=== PATIENT | female | born 1955 | race Caucasian/White ===

== ENCOUNTER → 2017-11-10 | Outpatient (CLI) | payer BC ==
[~2017-11-10] MED LIST: REGADENOSON 0.4 MG/5 ML SYR IV ONE
--- NOTE | 2017-11-10 15:41 | Consultation ---
DATE OF CONSULTATION: November 10, 2017 CARDIOLOGY CONSULTATION REQUESTING PHYSICIAN: Dr. Lauri Santoyo. REASON FOR CONSULTATION: Shortness of breath. HISTORY OF PRESENT ILLNESS: This is a 62-year-old woman with history of hypertension, hyperlipidemia, ulcerative colitis, Moriah's thyroiditis, and hepatitis C virus status post interferon therapy, who presented for cardiac evaluation. She denies any history of cardiac disease. However, she reports that her brother suddenly of a myocardial infarction recently at the age of 55. She denies any chest pain, shortness of breath, palpitation, edema, orthopnea, PND, lightheadedness or syncope. She does not exercise. REVIEW OF SYSTEMS: Negative except as per HPI. PAST MEDICAL HISTORY 1. Hypertension. 2. Hyperlipidemia. 3. Ulcerative colitis. 4. Moriah's thyroiditis. 5. Hepatitis C status post interferon therapy. PAST SURGICAL HISTORY: Tubal ligation. ALLERGIES: NO KNOWN DRUG ALLERGIES. MEDICATIONS: Please see medication list. SOCIAL HISTORY: Denies tobacco drugs. She drinks occasional alcohol. FAMILY HISTORY: As stated above, pertinent for a brother who of a myocardial infarction at the age of 55. PHYSICAL EXAMINATION VITAL SIGNS: Reviewed. GENERAL: A well-developed, well-nourished woman in no acute distress. HEENT: Normocephalic, atraumatic. Pupils equal, no scleral icterus. NECK: Supple. No thyromegaly or cervical lymphadenopathy, no carotid bruits. LUNGS: Clear to auscultation bilaterally. No wheezes or crackles. CARDIOVASCULAR: Normal rate, regular rhythm. No murmur. Normal S1 and S2. ABDOMEN: Soft, nontender. EXTREMITIES: No edema. NEURO: Nonfocal exam. EKG: Normal sinus rhythm. IMPRESSION 1. Shortness of breath. 2. Hypertension. 3. Hyperlipidemia. RECOMMENDATIONS: Although patient denies shortness of breath on questioning, she did indicate she has shortness of breath when speaking with her primary care provider. Given her risk factors, she does warrant ischemic evaluation. We will proceed with pharmacologic nuclear stress test. Job#: [id number] EV
--- NOTE | 2017-11-11 13:58 | Cardiology Report ---
DATE OF STUDY: November 10, 2017 NUCLEAR STRESS TEST PROCEDURE PERFORMED: Rest/stress single isotope SPECT imaging with pharmacologic stress and gated SPECT imaging. INDICATIONS: Dyspnea. PROCEDURE: Pharmacologic stress testing was performed with regadenoson per protocol. The heart rate was 59 beats per minute at baseline and increased to 103 beats per minute during the regadenoson infusion. The rest blood pressure was 108/82 and decreased to 104/80 mmHg, which is a normal response. The patient did not develop any symptoms during the procedure. The resting electrocardiogram demonstrated normal sinus rhythm. There were no ST segment changes consistent with myocardial ischemia. Next, myocardial perfusion imaging was performed at rest following the injection of 10.2 millicuries of tetrofosmin. At peak pharmacologic effect, the patient was injected with 31.8 millicuries of tetrofosmin. Gated poststress tomographic imaging was performed. FINDINGS: The overall quality of the study is fair. Left ventricular cavity is noted to be normal on the rest and stress studies. SPECT images demonstrate homogeneous tracer distribution throughout the myocardium. Gated SPECT imaging reveals normal myocardial thickening and wall motion. The left ventricular ejection fraction was calculated to be greater than 70%. IMPRESSION: Myocardial perfusion imaging is normal. Overall left ventricular systolic motion was normal without regional wall motion abnormalities. Job#: [id number] EV cc:MARII JOAQUIN MD
== END ==
LOC: NM 09:12
PROVIDERS: ATTEND Family Medicine
DX: R06.02 Shortness of breath (principal)
CPT/HCPCS: 78452; 93017; 93306; 93880; A9502

== ENCOUNTER → 2022-03-23 | Outpatient (CLI) | payer BC | LOC: MRI 10:58 | PROVIDERS: ATTEND Family Medicine | DX: G45.9 Transient cerebral ischemic attack, unspecified (principal) | CPT/HCPCS: 70551; 93880 ==

== ENCOUNTER → 2022-04-27 | Outpatient (CLI) | payer BC | LOC: RAD 09:10 | PROVIDERS: ATTEND Family Medicine | DX: G45.9 Transient cerebral ischemic attack, unspecified (principal) | CPT/HCPCS: 93306 ==